=== PATIENT | female | born 1975 | race Caucasian/White ===

== ENCOUNTER 2021-03-28 06:51 | Day surgery (SDC) | payer OTHER ==
[2021-03-28] MEDS ORDERED: FERRIC CARBOXYMALTOSE 750 MG in SODIUM CHLORIDE 250 ML IVPB ONE (10:00)
[2021-03-28] MEDS ORDERED: ACETAMINOPHEN 325 MG TABLET (FP) PO ONE (15:30)
[2021-03-28] MEDS ORDERED: diphenhydrAMINE HCL 25 MG CAPSULE (FP) PO ONE (15:30)
[2021-03-28 16:49] LABS: CALCIUM 8.8 mg/dL (8.5-10.1)
[2021-03-28 16:50] LABS: ALBUMIN 3.8 g/dl (3.4-5.0); BLOOD UREA NITROGEN 12.2 mg/dL (7-18)
[2021-03-28 16:52] LABS: BILIRUBIN,DIRECT 0.1 mg/dL (0.0-0.2)
[2021-03-28 16:53] LABS: CREATININE 0.9 mg/dL (0.55-1.3)
[2021-03-28 16:54] LABS: BILIRUBIN,TOTAL 0.4 mg/dL (0.2-1)
[2021-03-28 16:55] LABS: TOT PROT 7.1 g/dl (6.4-8.2)
[2021-03-28 17:34] VITALS: TEMP 99.6
[2021-03-28 18:10] VITALS: BP 122/55; PULSE 71
== END 2021-03-28 17:35 | disposition home or self-care (01) ==
LOC: JONCNONCHE 06:51
PROVIDERS: ATTEND Nurse Practitioner Family
PROC: 3E033GC Introduction of Other Therapeutic Substance into Peripheral Vein, Percutaneous Approach (ICD-10-PCS; principal; 2021-03-28)
DX: D50.9 Iron deficiency anemia, unspecified (principal)
CPT/HCPCS: 36415; 80048; 80076; 84703; 96365; J1439

== ENCOUNTER 2021-04-04 07:19 | Day surgery (SDC) | payer OTHER ==
[2021-04-04] MEDS ORDERED: FERRIC CARBOXYMALTOSE 750 MG in SODIUM CHLORIDE 250 ML IVPB ONE (10:00)
[2021-04-04] MEDS ORDERED: ACETAMINOPHEN 325 MG TABLET (FP) PO ONE (15:30)
[2021-04-04] MEDS ORDERED: diphenhydrAMINE HCL 25 MG CAPSULE (FP) PO ONE (15:30)
[2021-04-04 15:55] LABS: EOS % 1.4 % (0-4.5); HEMATOCRIT 31.8 % (32.4-45.2); HEMOGLOBIN 10.2 GM/dL (10.7-15.3); LYMPH % 33.2 % (8-40); MCH 24.2 pg (25.7-33.7); MCHC 32.3 g/dl (32.0-36.0); MEAN CELL VOLUME 74.9 fl (80-96); MEAN PLT VOLUME 9.1 fl (7.5-11.1); MONO % 6.5 % (3.8-10.2); NEUT % 57.9 % (42.8-82.8); PLATELET COUNT 370 10^3/uL (134-434); RBC 4.24 M/mm3 (3.60-5.2); RDW 19.9 % (11.6-15.6); WHITE BLOOD COUNT 8.7 K/mm3 (4.0-10.0)
[2021-04-04 16:18] LABS: CALCIUM 8.7 mg/dL (8.5-10.1)
[2021-04-04 16:19] LABS: ALBUMIN 3.7 g/dl (3.4-5.0); BLOOD UREA NITROGEN 6.6 mg/dL (7-18)
[2021-04-04 16:21] LABS: BILIRUBIN,DIRECT 0.1 mg/dL (0.0-0.2)
[2021-04-04 16:22] LABS: CREATININE 0.7 mg/dL (0.55-1.3); PHOSPHOROUS 1.8 mg/dL (2.5-4.9)
[2021-04-04 16:23] LABS: BILIRUBIN,TOTAL 0.2 mg/dL (0.2-1); TOT PROT 6.7 g/dl (6.4-8.2)
[2021-04-04] MEDS ORDERED: diphenhydrAMINE HCL 12.5 MG/5 ML UNIT-DOSE CUPS PO ONE (16:43)
[2021-04-04] MEDS ORDERED: predniSONE 20 MG TABLET (UD) PO ONE (16:47)
[2021-04-04] MEDS ORDERED: NAPH,MB-DB/K PH,MBDB POWDER PACKET PO ONE (17:38)
[2021-04-04 18:12] VITALS: PULSE 73; TEMP 98.8
[2021-04-04 18:13] VITALS: BP 113/73
== END 2021-04-04 18:13 | disposition home or self-care (01) ==
LOC: JONCNONCHE 07:19
PROVIDERS: ATTEND Internal Medicine Hematology & Oncology
PROC: 3E033GC Introduction of Other Therapeutic Substance into Peripheral Vein, Percutaneous Approach (ICD-10-PCS; principal; 2021-04-04)
DX: D50.9 Iron deficiency anemia, unspecified (principal)
CPT/HCPCS: 36415; 80048; 80076; 84100; 84703; 85025; 96365; J1439